=== PATIENT | male | born 1960 | race Caucasian/White ===

== ENCOUNTER 2017-09-09 19:11 | Emergency (ER) | payer OTHER ==
[2017-09-09] MEDS ORDERED: LISINOPRIL2.5 M1 (19:31)
[2017-09-09] MEDS ORDERED: LOPRESSOR50 M1 (19:37)
--- NOTE | 2017-09-09 20:26 | ED GI/GU/ABDOMINAL COMPLAINT ---
History of Present Illness General Chief Complaint: General Adult Stated Complaint: RECTAL BLEEDING? Source: patient, old records Exam Limitations: no limitations Vital Signs & Intake/Output Vital Signs & Intake/Output Vital Signs Date Time Temp Pulse Resp B/P B/P Pulse O2 O2 Flow FiO2 Mean Ox Delivery Rate 09/09 2335 98.2 71 18 103/51 97 Room Air 09/099 98 Room Air 09/099 97.6 78 14 119/72 96 Room Air Reconcile Medications Lisinopril 2.5 MG TABLET HEART HEALTH (Reported) Metoprolol Tartrate (Lopressor) 50 MG TABLET HEART HEALTH (Reported) Triage Note: BIBA CO GI BLEED AND DECREASED APPETITE OVER LAST FEW WEEKS - HX OF COLON CANCER - - PT STATES BM IS BRIGHT RED TINT - PT HAS ETOH ON BOARD ADMITS TO DRINKING VODKA TO MAKE THE PAIN GO AWAY. VITALS STABLE UPON ARRIVAL Triage Nurses Notes Reviewed? yes Onset: months Duration: week(s):, constant, continues in ED, waxing and waning Timing: recent history Quality/Severity: mild, moderate Location: perirectal Radiation: no radiation Prior Abdominal Problems: similar symptoms Past Sexual History: Unobtainable at this time No Modifying Factors: none HPI: The patient has a history of colorectal cancer status post colostomy. He reports issues with bloody and purulent drainage from a perirectal abscess site. 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 Reports seeing his colorectal surgeon from [facility] 2 weeks ago with a plan to create a new colostomy and repair this fistula and abscess. Reports being frustrated not wanting a new colostomy. He denies fever chills nausea vomiting diarrhea abdominal pain chest pain shortness breath headache dysuria rash. Past History Travel History Traveled to [place] past 21 day No Medical History Any Pertinent Medical History? see below for history Cardiovascular: hypertension Cancer(s): colon/rectal cancer Surgical History Surgical History: colorectal surgery, colostomy Family History Hx Contributory? No Review of Systems Review of Systems Constitutional: Reports: no symptoms. EENTM: Reports: no symptoms. Respiratory: Reports: no symptoms. Cardiovascular: Reports: no symptoms. GI: Reports: see HPI. Genitourinary: Reports: no symptoms. Musculoskeletal: Reports: no symptoms. Skin: Reports: no symptoms. Neurological/Psychological: Reports: no symptoms. Hematologic/Endocrine: Reports: no symptoms. Immunologic/Allergic: Reports: no symptoms. All Other Systems: Reviewed and Negative Physical Exam Physical Exam General Appearance: well developed/nourished, alert, awake, anxious, thin Head: atraumatic, normal appearance Eyes: Bilateral: normal appearance, PERRL, EOMI, normal inspection. Ears, Nose, Throat, Mouth: hearing grossly normal, moist mucous membrane Neck: normal inspection, supple, full range of motion, normal alignment Respiratory: normal breath sounds, chest non-tender, no respiratory distress, quiet respiration, lungs clear Cardiovascular: regular rate/rhythm, normal peripheral pulses, norml femoral pulses equa Peripheral Pulses: 4+ carotid (R), 4+ carotid (L) Gastrointestinal: normal bowel sounds, soft, non-tender, no organomegaly Rectal: purulent drainage from sinus tract Back: normal inspection, normal range of motion Extremities: normal range of motion, no ligament instability Neurologic/Psych: no motor/sensory deficits, awake, alert, oriented x 3, normal gait, normal mood/affect Skin: normal color, warm/dry Core Measures ACS in differential dx? No Sepsis Present: No Sepsis Focused Exam Completed? No Progress Differential Diagnosis: perforated viscous, UTI/pyelo Plan of Care: Orders Procedure Date/time Status URINALYSIS 09/10 1943 Complete LIPASE 09/10 1943 Complete COMPREHENSIVE METABOLIC PANEL 09/10 1943 Complete CBC WITHOUT DIFFERENTIAL 09/10 1943 Complete Current Medications Sig/Dawson Start time Last Medication Dose Stop Time Status Admin Ampicillin Sodium/ 3,000 MG ONCE ONE 09/10 0015 UNVr Sulbactam Sodium 09/10 0044 (Unasyn) Sodium Chloride 100 ML (Normal Saline 0.9%) Laboratory Tests 09/09/17 2330: Urine Color YEL, Urine Clarity CLEAR, Urine pH 6.0, Ur Specific Keller 1.015, Urine Protein NEG, Urine Ketones NEG, Urine Nitrite NEG, Urine Bilirubin NEG, Urine Urobilinogen 0.2, Ur Leukocyte Esterase MOD H, Ur Microscopic SEDIMENT EXAMINED, Urine WBC 10-15 H, Urine Bacteria FEW H, Urine Hemoglobin NEG, Urine Glucose NEG 09/09/17 2217: Anion Gap 14, Estimated GFR > 60, BUN/Creatinine Ratio 20.0, Glucose 79, Calcium 8.7, Total Bilirubin 0.4, AST 16 L, ALT 19 L, Alkaline Phosphatase 83, Total Protein 6.9, Albumin 3.5, Globulin 3.4, Albumin/Globulin Ratio 1.0 L, Lipase 154, CBC w Diff NO MAN DIFF REQ, RBC 4.68 L, MCV 85.5, MCH 28.8, MCHC 33.7, RDW 14.1, MPV 7.1 L, Gran % 62.7, Lymphocytes % 26.0, Monocytes % 6.1, Eosinophils % 4.4, Basophils % 0.8, Absolute Granulocytes 6.2, Absolute Lymphocytes 2.6, Absolute Monocytes 0.6, Absolute Eosinophils 0.4, Absolute Basophils 0.1 Diagnostic Imaging: Viewed by Me: CT Scan. Discussed w/RAD: CT Scan. Radiology Impression: 1. Status post partial colectomy with rectal stump. Left lower quadrant colostomy. 2. Presacral thick-walled fluid collection which contains contrast, therefore consistent with fistulization with the small bowel. 3. Moderate left hydroureteronephrosis. No obstructing calculi. The distal aspect of the ureter is not well-visualized, but a distal stricture is suspected. The bladder appears unremarkable. No right-sided hydronephrosis. 4. Severe degenerative changes at the left hip with a joint effusion present. Gas present within the left hip joint effusion, raising concern for a septic arthritis. Initial ED EKG: none Comments: Discussed with coverage for Dr. Lovett in transfer to [facility] ED (also discussed with Dr. Serrano) Departure Departure Time of Disposition: 0004 Disposition: OTHER [facility] (ACUTE) Condition: Fair Clinical Impression Primary Impression: Septic arthritis of hip Secondary Impressions: Abscess of anal and rectal regions, Fistula of intestine Referrals: Maryanne Billings NP (PCP/Family) Departure Forms: Customer Survey General Discharge Information Critical Care Note Critical Care Note Critical Care Time: 30-74 min (40)
[2017-09-09 21:25] LABS: ABSOLUTE BASOPHIL COUNT 0.1 /CUMM (0.0-0.2); ABSOLUTE EOSINOPHIL COUNT 0.4 /CUMM (0.0-0.7); ABSOLUTE GRANULOCYTE CT 6.2 /CUMM (1.4-6.5); ABSOLUTE LYMPH COUNT 2.6 /CUMM (1.2-3.4); ABSOLUTE MONOCYTE COUNT 0.6 /CUMM (0.10-0.60); BASOPHIL % 0.8 % (0.0-2.0); EOSINOPHIL % 4.4 % (0-5); GRANULOCYTE % 62.7 % (42.2-75.2); MEAN CORPUSCULAR HGB 28.8 PG (27.0-31.0); MEAN CORPUSCULAR HGB CONC 33.7 G/DL (33.0-37.0); MEAN CORPUSCULAR VOLUME 85.5 FL (80.0-94.0); MEAN PLATELET VOLUME 7.1 FL (7.4-10.4); PLATELET COUNT 395 /CUMM (130-400); RBC DISTRIBUTION WIDTH 14.1 % (11.5-14.5); RED BLOOD CELL CT 4.68 /CUMM (4.70-6.10); WHITE BLOOD CELL COUNT 9.9 /CUMM (4.8-10.8)
--- NOTE | 2017-09-09 23:05 | CT SCAN REPORT ---
EXAMINATION: CT ABDOMEN AND PELVIS WITH CONTRAST CLINICAL INFORMATION: History of rectal cancer with colostomy. Presacral abscess with small bowel fistula. COMPARISON: None TECHNIQUE: Multidetector volumetric imaging was performed of the abdomen and pelvis following IV administration of 95 mL of Optiray 320 intravenous contrast. Oral contrast was also utilized. Sagittal and coronal reformatted images were obtained on the technologist's workstation. DLP: 296 mGy-cm FINDINGS: LUNG BASES: The visualized lung bases are unremarkable. LIVER, GALLBLADDER, AND BILIARY TREE: The liver is normal in size, shape, and attenuation. There is a 1.5 cm cyst in segment 2 of the liver. No solid hepatic lesion or biliary ductal dilatation is present. The gallbladder is unremarkable with no evidence of radiopaque gallstones, gallbladder wall thickening, or obvious pericholecystic inflammatory changes. PANCREAS: Unremarkable. SPLEEN: Unremarkable. ADRENAL GLANDS: Unremarkable. KIDNEYS AND URETERS: The kidneys are normal in size, shape, and attenuation. There is moderate left hydroureteronephrosis. The distal ureter is poorly visualized, but there are no obstructing renal calculi. There is no right-sided hydronephrosis. Multiple areas of cortical scarring seen at both kidneys. No perinephric stranding. BLADDER: Unremarkable. GASTROINTESTINAL TRACT: The stomach is unremarkable. The small bowel is normal in caliber without obstruction. Small bowel does extend into the posterior deep pelvis. There is a thick walled collection in the presacral region which contains oral contrast, consistent with fistulization with the small bowel. The overall size of this collection is difficult to fully delineate but measures approximately 4 cm transverse by 3.5 cm AP by 7 cm CC. The central portion of the collection containing gas and contrast measures 1.1 cm transverse by 1.1 cm AP by 3.5 cm CC. The patient is status post partial colectomy with a rectal stump. There is a left lower quadrant colostomy. The rectal stump has a small amount of gas internally, with no contrast. No free air. ABDOMINAL WALL: Left lower quadrant colostomy. No abdominal wall hernia. LYMPH NODES: Normal. VASCULAR: Normal caliber aorta with moderate atherosclerotic calcifications. PELVIC VISCERA: Calcifications in the prostate. The seminal vesicles are unremarkable. OSSEOUS STRUCTURES: There are multilevel degenerative changes noted in the spine. Degenerative changes are seen at both hips. There is severe loss of joint space at the left hip with mild flattening of the femoral head and prominent subchondral cysts with sclerosis and osteophyte formation. There is a complex left hip joint effusion. Foci of gas are seen within the left hip joint fluid, raising concern for septic arthritis. IMPRESSION: 1. Status post partial colectomy with rectal stump. Left lower quadrant colostomy. 2. Presacral thick-walled fluid collection which contains contrast, therefore consistent with fistulization with the small bowel. 3. Moderate left hydroureteronephrosis. No obstructing calculi. The distal aspect of the ureter is not well-visualized, but a distal stricture is suspected. The bladder appears unremarkable. No right-sided hydronephrosis. 4. Severe degenerative changes at the left hip with a joint effusion present. Gas present within the left hip joint effusion, raising concern for a septic arthritis.
== END 2017-09-10 01:05 | disposition short-term general hospital (02) ==
LOC: ERH 19:11
PROVIDERS: Emergency Medicine
DX: M00.9 Pyogenic arthritis, unspecified (principal); K61.0 Anal abscess; K61.1 Rectal abscess; K63.2 Fistula of intestine
CPT/HCPCS: 74177; 81001; 96374; 99291

== ENCOUNTER 2017-09-28 20:58 | Emergency (ER) | payer OTHER ==
[~2017-09-28 20:58] MED LIST: LISINOPRIL2.5 M1; LOPRESSOR50 M1
--- NOTE | 2017-09-28 21:30 | ED GI/GU/ABDOMINAL COMPLAINT ---
History of Present Illness General Chief Complaint: General Adult Stated Complaint: BIBA WITH COLIS Source: patient Exam Limitations: no limitations Vital Signs & Intake/Output Vital Signs & Intake/Output Vital Signs Date Time Temp Pulse Resp B/P B/P Pulse O2 O2 Flow FiO2 Mean Ox Delivery Rate 09/28 2225 98.0 98 18 136/88 96 Room Air 09/287 96 Room Air 09/28 2121 97.6 98 16 146/92 98 Room Air ED Intake and Output 09/29 0000 09/28 1200 Intake Total 60 Output Total Balance 60 Intake, Oral 60 Reconcile Medications Lisinopril 2.5 MG TABLET HEART HEALTH (Reported) Metoprolol Tartrate (Lopressor) 50 MG TABLET HEART HEALTH (Reported) Triage Nurses Notes Reviewed? yes Onset: Abrupt Duration: minute(s): Timing: single episode today HPI: 57yo male with hx of HTN, colorectal CA s/p colostomy BIBA to ED after disruption of colostomy bag by police. Patient states that he was confronted by the police, they told him they had a arrest warrant for him. When they were searching him they thought he had a gun on his body however this was his colostomy bag. Police blood pressure colostomy bag and ended up causing bag to expload releasing stool contents. Patient states that when he got to the police office they do not actually have a warrant for him. He came here to "get cleaned up". Patient states she prefers to go home and take a shower rather than get cleaned up here. Patient denies alcohol use today. Patient reports he is taking Percocet which is prescribed to him. (Daphney Allen) Past History Medical History Any Pertinent Medical History? see below for history Cardiovascular: hypertension Cancer(s): colon/rectal cancer Surgical History Surgical History: colorectal surgery colostomy Family History Hx Contributory? No (Daphney Allen) Review of Systems Review of Systems Constitutional: Reports: no symptoms. EENTM: Reports: no symptoms. Respiratory: Reports: no symptoms. Cardiovascular: Reports: no symptoms. GI: Reports: see HPI. Genitourinary: Reports: no symptoms. Musculoskeletal: Reports: no symptoms. Skin: Reports: no symptoms. Neurological/Psychological: Reports: no symptoms. Hematologic/Endocrine: Reports: no symptoms. Immunologic/Allergic: Reports: no symptoms. All Other Systems: Reviewed and Negative (Daphney Allen) Physical Exam Physical Exam General Appearance: well developed/nourished, no apparent distress, alert, awake , patient smells of alcohol Head: atraumatic, normal appearance Eyes: Bilateral: normal appearance. Ears, Nose, Throat, Mouth: hearing grossly normal Neck: normal inspection, supple, full range of motion Respiratory: no respiratory distress Gastrointestinal: colostomy bag in place, dried stool present on clothes Back: normal inspection, normal range of motion Extremities: normal range of motion Neurologic/Psych: awake, alert, oriented x 3 Skin: intact, normal color, warm/dry Core Measures ACS in differential dx? No Sepsis Present: No Sepsis Focused Exam Completed? No (Daphney Allen) Progress Differential Diagnosis: colostomy bag disruption, intoxication, alcohol abuse, drug abuse Plan of Care: Breathalyzer result is 0.155. He does appear slightly intoxicated and smells of alcohol. Patient does not have a ride home, given his alcohol intoxication while waiting in the emergency department until clinically sober. Patient has no abdominal pain at this time, no acute distress. The patient was signed out to Dr. Preston pending clinical sobriety and discharge. Initial ED EKG: none Hand-Off Endorsed To: Sekou Preston MD Endorsed Time: 2300 Pending: other (clinical sobriety) (Daphney Allen) Departure Departure Condition: Stable Clinical Impression Primary Impression: Alcohol intoxication Qualifiers: Complication of substance-induced condition: uncomplicated Qualified Code: F10.920 - Alcohol use, unspecified with intoxication, uncomplicated Secondary Impressions: Colostomy dysfunction Referrals: Maryanne Billings NP (PCP/Family) Additional Instructions: Please note that there might be incidental findings in your evaluation that are unrelated to the current emergency department visit. Please notify your primary care doctor about this emergency department visit in order to obtain and review all of the testing performed so that these incidental findings can be monitored as needed. If you had an x-ray performed, please understand that some fractures may not be seen on the initial set of x-rays. If your symptoms persist you might need a repeat set of x-rays to check for such a fracture. If you had a laceration evaluated, please understand that foreign bodies such as glass or wood may not be visible to the naked eye or on plain x-rays. If the wound becomes red, swollen, increasingly more painful or if there is any drainage from the wound, please have it reevaluated by a physician for the possibility of a retained foreign body. If you're unable to follow up as outlined in the discharge instructions please return to the emergency department. Thank you for choosing the [facility] Emergency Department for your care. It was a pleasure to serve you today. Departure Forms: Customer Survey General Discharge Information (Mala NEWTON,Daphney Vernon) Departure Time of Disposition: 218 Disposition: HOME OR SELF CARE PA/SCHOOL BUS ATTENDANT Co-Sign Statement Statement: ED Attending supervision documentation- x I saw and evaluated the patient. I have also reviewed all the pertinent lab results and diagnostic results. I agree with the findings and the plan of care as documented in the PA's/SCHOOL BUS ATTENDANT's documentation. [] I have reviewed the ED Record and agree with the PA's/SCHOOL BUS ATTENDANT's documentation. [] Additions or exceptions (if any) to the PAs/SCHOOL BUS ATTENDANT's note and plan are summarized below: [] (Mohan PATEL,Sekou)
[2017-09-29 03:03] VITALS: BP 112/76
== END 2017-09-29 03:04 ==
LOC: ERH 20:58
DX: F10.129 Alcohol abuse with intoxication, unspecified (principal); K94.03 Colostomy malfunction